=== PATIENT | female | born 1965 | race Caucasian/White ===

== ENCOUNTER 2024-02-02 20:12 | Emergency (ER) | payer SELFPAY ==
[2024-02-02 20:13] VITALS: BP 130/73; PULSE 89; RESP 16; TEMP 36.6; O2SAT 88; BMI 15.1
--- NOTE | 2024-02-02 20:13 | XRR_ITS ---
PROCEDURE INFORMATION: Exam: XR Chest Exam date and time: 02/02/2024 8:44 PM Age: 58 years old Clinical indication: Chest wall pain; Additional info: Cp TECHNIQUE: Imaging protocol: Radiologic exam of the chest. Views: 1 view. Other technique: BEDSIDE AP CHEST COMPARISON: No relevant prior studies available. FINDINGS: Lungs: Lung volumes are large. Lungs are clear. Pleural spaces: No definite pleural effusions or pneumothorax. Heart/Mediastinum: Normal. Bones/joints: There is mild left mid thoracic curvature or scoliosis. Degenerative disc and facet disease of lower cervical spine is present. A few, < 5 mm, oval and semioval, very radiopaque foci projecting superior to and over right distal clavicle may reflect objects external to patient. XR/XR chest 1V portable [id number] IMPRESSION: Clear lungs.
--- NOTE | 2024-02-02 20:13 | ECG_ITS ---
[facility] Test Date: 2024-02-02 Pat Name: Malorie Ray Department: Room: Gender: Female Rouge Sifter: : 1965 Requested By: Parul Huffman Order Number: [id number] Frank MD: Tommie Lundberg M.D. Measurements Intervals [place] Rate: 86 P: 76 NM: 145 QRS: 82 QRSD: 79 T: 80 QT: 362 QTc: 434 Interpretive Statements SINUS RHYTHM RIGHT ATRIAL ENLARGEMENT [0.3mV P-WAVE] LEFT ATRIAL ENLARGEMENT [-0.15mV P-WAVE IN V1/V2] No previous ECG available for comparison Electronically Signed On 02-04-2024 17:04:05 CDT by Tommie Lundberg M.D. [id number]
--- NOTE | 2024-02-02 20:16 | W.ED.GENADLT ---
HPI - General Adult General: Chief complaint: Anxiety Stated complaint: panic attack Time Seen by Provider: 02/02/24 20:14 Source: patient, EMS and police Mode of arrival: EMS Limitations: no limitations History of Present Illness: 58-year-old female who been arrested today and found out she was on a $300,000 barnes and had a severe panic attack police had to call EMS EMS states they arrived she is hysterical they had to give her 4 mg Ativan states that she was complaining of chest pain neck pain shortness of breath with screaming yelling patient is much more calm now she states she feels improved denies any vomiting or diarrhea. Associated symptoms: Reports chest pain and dyspnea; Deny headache(s), nausea, rash or vomiting Review of Systems Const: Denies: fever(s), chills, body aches or change in appetite ENMT: Denies: throat pain or dental pain Card: Reports: chest pain Resp: Reports: dyspnea GI: Denies: abdominal pain, nausea, vomiting or diarrhea : Denies: dysuria Musc: Denies: neck pain or back pain Skin/Breast: Denies: rash Neuro: Denies: headache(s) Psych: Reports: anxiety Physical Exam Const: COMMON NORMALS: no acute distress, patient oriented x3 and healthy appearing HENMT: COMMON NORMALS: normocephalic and atraumatic HEAD & SCALP: normocephalic and atraumatic Eye: COMMON NORMALS: Equal, round and reactive pupils present and EOMs intact bilaterally PUPIL: Yes Equal, round and reactive pupils present Neck/C-Spine: COMMON NORMALS: full ROM and supple Chest: COMMONS NORMALS: normal inspection of the chest and normal palpation of entire chest wall Resp: COMMON NORMALS: normal respiratory effort, No retractions, No use of accessory muscles and clear to auscultation bilaterally AUSCULTATION: clear to auscultation bilaterally Cardio: COMMON NORMALS: regular rate, regular rhythm and No murmurs present (Cardio) RATE: regular rate RHYTHM: regular rhythm GI: COMMON NORMALS: Normal to inspection, nondistended, normoactive bowel sounds present, Soft to palpation, non-tender and no masses PALPATION: Yes Soft to palpation Extremity: COMMON NORMALS: normal to inspection and full ROM Neuro: COMMON NORMALS: patient oriented x3, moves all extremities and no focal motor deficits Psych: COMMON NORMALS: mental status grossly normal, Normal thought process present and cooperative THOUGHT PROCESS: Normal thought process present Skin: COMMON NORMALS: no rashes or lesions noted and no wounds GENERAL SKIN EXAM: no rashes or lesions noted Course Vital Signs: Vital signs: Vital Signs Temperature 97.9 F 02/02/24 20:13 Pulse Rate 89 02/02/24 20:13 Respiratory Rate 16 02/02/24 20:13 Blood Pressure 130/73 02/02/24 20:13 Pulse Oximetry 88 L 02/02/24 20:13 Oxygen Delivery Me thod Room Air 02/02/24 20:13 MDM - General Adult Medical Decision Making Patient presents here with a panic attack after being arrested her troponin blood work here are all normal no signs of PE no signs of acute coronary event she stable for discharge back into police custody Medical Records I reviewed the patient's medical records. Lab Data I reviewed the patient's lab results. 02/02/24 20:00 02/02/24 20:44 Laboratory Results WBC 9.17 10^3/uL (3.29-11.43) 02/02/24 20:00 RBC 5.00 10^6/uL (3.85-5.65) 02/02/24 20:00 Hgb 15.70 g/dL (11.27-16.99) 02/02/24 20:00 Hct 47.1 % (36-47) H 02/02/24 20:00 MCV 94.2 fl (85-98) 02/02/24 20:00 MCH 31.4 pg (27-33) 02/02/24 20:00 MCHC 33.3 g/dL (30-55) 02/02/24 20:00 RDW 12.6 % (12.1-15.1) 02/02/24 20:00 Plt Count 212 10^3/cmm (157-399) 02/02/24 20:00 MPV 11.9 fL (7.4-10.4) H 02/02/24 20:00 Neut % (Auto) 79.6 % 02/02/24 20:00 Lymph % (Auto) 14.1 % 02/02/24 20:00 [place] % (Auto) 5.7 % 02/02/24 20:00 Eos % (Auto) 0.1 % 02/02/24 20:00 Baso % (Auto) 0.3 % 02/02/24 20:00 Neut # (Auto) 7.30 10^3/uL (1.8-7.7) 02/02/24 20:00 Lymph # (Auto) 1.3 10^3/uL (0.8-4.8) 02/02/24 20:00 [place] # (Auto) 0.5 10^3/uL (0.2-0.9) 02/02/24 20:00 Eos # (Auto) 0.0 10^3/uL (0.0-0.8) 02/02/24 20:00 Baso # (Auto) 0.0 10^3/uL (0.0-0.1) 02/02/24 20:00 Nucleated RBC % (auto) 0 % 02/02/24 20:00 Nucleated RBCs # 0.0 /100WBC 02/02/24 20:00 Sodium 137 mmol/L (136-145) 02/02/24 20:44 Potassium 4.2 mmol/L (3.5-5.1) 02/02/24 20:44 Chloride 101 mmol/L (98-107) 02/02/24 20:44 Carbon Dioxide 26 mmol/L (22-29) 02/02/24 20:44 Anion Gap 14.2 (5-19) 02/02/24 20:44 BUN 16 mg/dL (6-20) 02/02/24 20:44 Creatinine 0.5 mg/dL (0.5-0.9) 02/02/24 20:44 GFR Calculation 126.7 mL/min (90-130) 02/02/24 20:44 Glucose 150 mg/dL (65-115) H 02/02/24 20:44 Calculated Osmolality 288 mOsm/kg (285-295) 02/02/24 20:44 Calcium 9.7 mg/dL (8.5-10.5) 02/02/24 20:44 Total Bilirubin 0.3 mg/dL (0.15-1.2) 02/02/24 20:44 AST 15 U/L (0-32) 02/02/24 20:44 ALT 10 U/L (0-33) 02/02/24 20:44 Alkaline Phosphatase 106 U/L (35-105) H 02/02/24 20:44 Troponin T Baseline < 6 ng/L (0-10) 02/02/24 20:00 Total Protein 7.5 g/dL (6.6-8.7) 02/02/24 20:44 Albumin 4.0 g/dL (3.5-5.2) 02/02/24 20:44 Globulin 3.5 g/dL (1.3-4.6) 02/02/24 20:44 Ethyl Alcohol < 10 mg/dL (0-10) 02/02/24 20:44 All radiology interpretation(s) finalized by discharge EKG Data EKG 1: I personally reviewed and interpreted this EKG as follows: EKG interpretation date: 02/02/24 EKG interpretation time: 20:34 Interpretation: nsr hr [address] or t wave abnormalities qrs 79 qtc 405 Discharge Plan Discharge Patient Disposition: Home Clinical Impression: Acute anxiety Condition: Stable Discharge Orders: Discharge ED (Routine); Ordered 02/02/24 Ordered By: Parul Huffman Discharge Diet: Advance as tolerated Discharge Activity: Resume usual activity Patient Instructions: Panic Attack (ED) Coding Level of Care Code ED [facility] for [facility]
[2024-02-02 20:23] VITALS: BP 125/80; PULSE 92; O2SAT 92
--- NOTE | 2024-02-02 20:25 | PC.NURSE ---
Pt on bedside leaflet or newspaper deliverer
[2024-02-02 20:32] LABS: Basophils % 0.3 %; Eosinophils % 0.1 %; Hematocrit 47.1 % (36-47); Lymphocytes # 1.3 10^3/uL (0.8-4.8); Lymphocytes % 14.1 %; Mean Corpuscular HGB Conc 33.3 g/dL (30-55); Mean Corpuscular Hemoglobin 31.4 pg (27-33); Mean Corpuscular Volume 94.2 fl (85-98); Mean Platelet Volume 11.9 fL (7.4-10.4); Monocytes # 0.5 10^3/uL (0.2-0.9); Monocytes % 5.7 %; Neutrophils % 79.6 %; Nucleated Red Blood Cells % 0 %; Platelet Count 212 10^3/cmm (157-399); Red Cell Distribution Width 12.6 % (12.1-15.1); White Blood Count 9.17 10^3/uL (3.29-11.43)
[2024-02-02 20:44] LABS: Troponin(5th) Baseline < 6 ng/L (0-10)
[2024-02-02 21:05] VITALS: BP 123/83; PULSE 87; RESP 18; O2SAT 92
[2024-02-02 21:07] LABS: Alanine Aminotransferase 10 U/L (0-33); Alkaline Phosphatase 106 U/L (35-105); Anion Gap 14.2 (5-19); Aspartate Amino Transferase 15 U/L (0-32); Blood Urea Nitrogen 16 mg/dL (6-20); Calcium 9.7 mg/dL (8.5-10.5); Carbon Dioxide 26 mmol/L (22-29); Chloride 101 mmol/L (98-107); Creatinine Clr Calc Pharmacy 82.5519; Globulin 3.5 g/dL (1.3-4.6); Glomerular Filtration Rate 126.7 mL/min (90-130); Glucose 150 mg/dL (65-115); Osmolality Calculated 288 mOsm/kg (285-295); Potassium 4.2 mmol/L (3.5-5.1); Sodium 137 mmol/L (136-145); Total Bilirubin 0.3 mg/dL (0.15-1.2); Total Protein 7.5 g/dL (6.6-8.7)
[2024-02-02 21:10] LABS: Alcohol Level < 10 mg/dL (0-10)
[2024-02-02 22:07] VITALS: BP 128/81; PULSE 89; RESP 15; O2SAT 94
== END 2024-02-02 22:09 | disposition home or self-care (01) ==
PROVIDERS: Emergency Provider Emergency Medicine
DX: F41.9 Anxiety disorder, unspecified (principal)
CPT/HCPCS: 36415; 71045; 80053; 80307; 84484; 85025; 93005; 99285